=== PATIENT | female | born 1985 | race American Indian/Alaskan Native ===

== ENCOUNTER 2017-08-20 11:38 | Outpatient (CLI) | payer OTHER ==
--- NOTE | 2017-08-20 21:18 | XRay Report ---
FINAL REPORT EXAM: XR SPINE LUMBOSACRAL 2-3V HISTORY: HIV/AIDS, ANXIETY, DEPRESSION, SLEEP DISORDER, HEADACHES TECHNIQUE: AP, lateral and coned-down views of lumbar spine. PRIORS: None. FINDINGS: No loss of height or gross malalignment of lumbar vertebral bodies. No obvious osseous destruction. Lumbar disc spaces maintained. Paraspinal soft tissues grossly unremarkable. IMPRESSION: 1. No acute osseous abnormality.
--- NOTE | 2017-08-20 21:18 | XRay Report ---
FINAL REPORT EXAM: XR KNEE BILAT 1-2V HISTORY: HIV/AIDS, ANXIETY, DEPRESSION, SLEEP DISORDER, HEADACHES TECHNIQUE: 2 views of both right and left knees. PRIORS: None. FINDINGS: Joint spaces maintained. No apparent fracture or dislocation. Soft tissues grossly unremarkable. IMPRESSION: 1. No acute osseous abnormality.
== END 2017-08-20 11:39 | disposition home or self-care (01) ==
LOC: XRAY 11:38
PROVIDERS: ATTEND Internal Medicine
DX: B20 Human immunodeficiency virus [HIV] disease (principal); F41.9 Anxiety disorder, unspecified; F32.9 Major depressive disorder, single episode, unspecified; G47.9 Sleep disorder, unspecified; G43.909 Migraine, unspecified, not intractable, without status migrainosus; G44.89 Other headache syndrome
CPT/HCPCS: 72100